=== PATIENT | male | born 1995 | race Two or more races ===

== ENCOUNTER 2017-10-30 02:03 | Emergency (ER) | payer OTHER ==
[~2017-10-30] VITALS: Ht 172.7 cm; Wt 54.4 kg
--- NOTE | 2017-10-30 02:59 | NUR ---
pt aox4, brought in for hand injury xtoday after falling off skateboard. pt able to speak in clear and complete sentences and able to make needs known. pt in no acute distress, c/o pain. xray at bedside now.
[2017-10-30] MEDS ORDERED: HYDROCODONE/APAP 5-325MG TABLET PO ONE (03:00)
[2017-10-30] MEDS ORDERED: TDAP DIPH,PERTUSS,TET VAC/PF 0.5 ML DISP.SYRIN IM ONE ×2 (03:00→03:05)
[2017-10-30] MEDS ORDERED: HYDROCODONE/APAP 5-325MG TABLET ONE (03:04)
--- NOTE | 2017-10-30 03:26 | NUR ---
Patient discharged to home in stable conditon. Written and verbal after care instructions given with rx and educated to not drive while taking medication. Patient verbalizes understanding of instructions. L hand splint done per ER MD order. +CMS
== END 2017-10-30 03:26 | disposition home or self-care (01) ==
LOC: ER 02:07
DX: S62.615A Displaced fracture of proximal phalanx of left ring finger, initial encounter for closed fracture (principal); W19.XXXA Unspecified fall, initial encounter; Y92.89 Other specified places as the place of occurrence of the external cause; Y99.8 Other external cause status; Y93.51 Activity, roller skating (inline) and skateboarding
CPT/HCPCS: 29125; 73130; 99284; A4663; 90715